=== PATIENT | female | born 1995 | race Native Hawaiian/Other Pacific Islander ===

== ENCOUNTER 2023-03-22 19:07 | Emergency (ER) | payer MEDICAID ==
[~2023-03-22] VITALS: Ht 167.6 cm; Wt 90.9 kg
[~2023-03-22 19:07] MED LIST: PROAIR HFA0.09 MG/AC IH
[2023-03-22 19:14] VITALS: TEMP 98.6
[2023-03-22] MEDS ORDERED: FLEXERIL 1010 MG/TAB PO (20:32)
[2023-03-22] MEDS ORDERED: NAPROSYN500 MG PO (20:33)
[2023-03-22 21:00] VITALS: BP 103/69; PULSE 62
== END 2023-03-22 21:00 | disposition home or self-care (01) ==
LOC: COL.ER 19:07
DX: M62.830 Muscle spasm of back (principal)
CPT/HCPCS: J1885